=== PATIENT | female | born 1965 | race African-American/Black ===

== ENCOUNTER 2017-09-30 09:23 | Emergency (ER) | payer BC ==
[2017-09-30 09:58] LABS: Urine Blood NEGATIVE (NEG); Urine Glucose NEGATIVE (NEG); Urine Protein NEGATIVE (NEG); Urine pH 6.5 (5.0-7.0)
[2017-09-30 11:31] LABS: Absolute Lymphocytes (CBC) 2.4 K/uL (0.7-4.9); Absolute Monocytes 0.4 K/uL (0.1-1.3); Absolute Neutrophil 3.8 K/uL (1.8-8.0); Basophils % 0.6 % (0-1.3); Eosinophils % 5.9 % (0-4.4); Hematocrit 39.5 % (36.0-45.0); Lymphocytes % 33.9 % (15.3-44.8); MCH 23.9 pg (27.0-35.0); MCV 74.9 fL (80-100); MPV 7.8 fL (7.6-11.3); Monocytes % 5.9 % (3.3-12.3); RBC Red Blood Cell Count 5.27 M/uL (3.86-4.86)
--- NOTE | 2017-09-30 11:31 | RAD REPORT ---
EXAM DESCRIPTION: CT - Stone Protocol - 09/30/2017 11:16 am CLINICAL HISTORY: Left lower quadrant pain radiating to the back, partial hysterectomy COMPARISON: None. TECHNIQUE: Axial 5 mm thick images were obtained without oral or IV contrast. The [id number] span s the entirety of the system including uppermost abdomen and lung bases. All CT scans are performed using dose optimization technique as appropriate and may include automated exposure control or mA/KV adjustment according to patient size. FINDINGS: No hydronephrosis is present and no obstructing ureteral calculi. There is a 6 mm nonobstr ucting calyx calcification lower pole of the left kidney. No suspicious renal masses. Isodense masses and pyelonephritis are not excluded on a stone protocol CT scan. Partially filled urinary bladder sh ows no calculus, wall thickening mass. Clinical history is partial hysterectomy. There is no uterus identifiable. In the central pelvis ther e is a 13 x 6 centimeter homogeneous thin-walled fluid attenuation mass. No wall thickening, fat, nehal cification or other associated finding. Both the right and left ovary abut the lateral margins of the cystic mass. The ovaries are otherwise unremarkable. Liver and spleen show no suspicious findings. No acute gallbladder finding. Gallstones can be occult. No biliary tree dilatation. No adrenal abnormality. Along the superior margin of the pancreatic body extending porch the gastrohepatic ligament there is a 2.4 centimeter rounded soft tissue mass. This is isodense to the pancreatic parenchyma. No adjacent mass, stranding or lymph node. No gastric wall thickening or gastric mass. Small bowel is unremarkable. No appendicitis findings. Th ere is contrast or appendicolith present. No active process seen. A few diverticula are scattered in the colon. No hernia, omental thickening or bulky lymphadenopathy. No free air, free fluid or inflammatory stran ding. No significant bony abnormality. IMPRESSION: No hydronephrosis, obstructing calculus or acute finding. A 6 mm calcification is pre sent lower pole calyx on the left. Isodense masses and pyelonephritis are not excluded. The patient has a 2.4 centimeter mass that abuts or extends from the body of the pancreas towards the gastrohepatic ligament. This could be a pancreatic origin mass or an abnormal gastrohepatic ligament lymph node. A follow-up contrast CT or contrast MR study could be performed for further characteriza tion. A primary pancreatic malignant process cannot be excluded. A 13 x 6 centimeter homogeneous fluid attenuation mass is present in the pelvis over the dome of the urinary bladder. In a post hysterectomy patient this is possibly a chronic postoperative seroma. Ovar ies abut this mass and therefore cystadenoma would be a possibility. No prior imaging is available at this facility. If the patient has prior abdominal/pelvic imaging, th ose studies could be reviewed to determine if the above findings are new, progressive or chronic.
[2017-09-30 11:37] LABS: Potassium 4.7 mEq/L (3.6-5.0)
[2017-09-30 11:38] LABS: Glomerular Filtration Rate > 60 mL/min (>60)
[2017-09-30 11:38] LABS: Urine Bacteria 20-50 /HPF (<20); Urine RBC <5 /HPF (NONE SEEN)
[2017-09-30 11:39] LABS: Urine Culture Reflex Order REFLEXED
[2017-09-30 11:43] LABS: Albumin 4.4 g/dL (3.2-5.5); Bilirubin Direct 0.1 mg/dL (0-0.2); Bilirubin Total 0.6 mg/dL (0.3-1.2); Protein, Total 8.8 g/dL (6.0-8.3)
--- NOTE | 2017-09-30 13:03 | ER ---
Nurse's Notes [facility] Name: Kennedi Markham Age: 51 yrs Sex: Female : 1965 Arrival Date: 09/30/2017 Time: 09:24 Bed 19 Private MD: Diagnosis: Other intra-abdominal and pelvic swelling, mass and lump;Lower abdominal pain, unspecified Presentation: 09/30 09:35 Presenting complaint: Patient states: sharp, intermittent LLQ pain that radiates toward ss back that began last night. Denies urinary s/s, N/V/V. Transition of care: patient was not received from another setting of care. Onset of symptoms was September 29, 2017. Care prior to arrival: None. 09:35 Method Of Arrival: Ambulatory ss 09:35 Acuity: HERVE 3 ss Historical: - Allergies: 09:37 No Known Allergies; ss - Home Meds: 09:37 "pain relievers and muscle relaxers for my shoulder" [Active]; ss - PMHx: 09:37 Anxiety; ss - PSHx: 09:37 Partial hysterectomy; ss - Immunization history:: Adult Immunizations up to date. - Social history:: Smoking status: Patient/guardian denies using tobacco. Screenin:02 Abuse screen: Denies threats or abuse. Denies injuries from another. Nutritional ph screening: No deficits noted. Tuberculosis screening: No symptoms or risk factors identified. Fall Risk None identified. Assessment: 10:15 General: Appears in no apparent distress. uncomfortable, well groomed, Behavior is ph calm, cooperative, appropriate for age, Denies fever, feeling ill. Pain: Complains of pain in left lower quadrant Pain radiates to left low back. Neuro: Level of Consciousness is awake, alert, obeys commands, Oriented to person, place, time, situation. Cardiovascular: Capillary refill < 3 seconds in bilateral fingers Patient's skin is warm and dry. Respiratory: Airway is patent Respiratory effort is even, unlabored, Respiratory pattern is regular, symmetrical. GI: Bowel sounds present X 4 quads. Abd is soft and non tender Reports lower abdominal pain, nausea, Patient currently denies diarrhea, vomiting. : Reports urinary frequency. Derm: Skin is intact, is healthy with good turgor, Skin is pink, warm \\T\\ dry. Musculoskeletal: Circulation, motion, and sensation intact. Range of motion: intact in all extremities. 11:30 Reassessment: Patient appears in no apparent distress at this time. Patient and/or ph family updated on plan of care and expected duration. Pain level reassessed. Patient is alert, oriented x 3, equal unlabored respirations, skin warm/dry/pink. PT resting quietly, awaiting lab and CT results results. Vital Signs: 09:37 BP 124 / 91; Pulse 105; Resp 14; Temp 97.5(TE); Pulse Ox 98% on R/A; Weight 117.93 kg; ss Height 5 ft. 5 in. (165.10 cm); Pain 9/10; 12:02 BP 132 / 89; Pulse 98; Resp 18; Pulse Ox 99% on R/A; ph 09:37 Body Mass Index 43.27 (117.93 kg, 165.10 cm) ED Course: 09:24 Patient arrived in ED. as 09:36 Triage completed. ss 09:37 Arm band placed on right wrist. ss 10:01 Ria Jacobs RN is Primary Nurse. ph 10:05 Donovan Santiago PA is PHCP. cp 10:05 David Cortés MD is Attending Physician. cp 11:10 Inserted saline lock: 22 gauge in right antecubital area, using aseptic technique. rb1 Blood collected. 11:16 CT Stone Protocol In Process Unspecified. EDMS 12:02 Patient has correct armband on for positive identification. Placed in gown. Bed in low ph position. Call light in reach. Side rails up X 1. Pulse ox on. NIBP on. Warm blanket given. 13:02 Roberto Carlos Maier MD is Referral Physician. cp Administered Medications: No medications were administered Outcome: 13:03 Discharge ordered by . cp 13:32 Patient left the ED. ph Signatures: Dispatcher [employer] EDMS Bernice Jiménez Shelby, RN RN Ria Jacobs RN RN ph Donovan Santiago PA PA cp Yuly Cleaning RN RN rb1
--- NOTE | 2017-09-30 13:04 | EDPHYS ---
Physician Documentation [facility] Name: Kennedi Markham Age: 51 yrs Sex: Female : 1965 Arrival Date: 09/30/2017 Time: 09:24 Bed 19 Private MD: ED Physician David Cortés HPI: 09/30 10:45 This 51 yrs old Black Female presents to ER via Ambulatory with complaints of Abdominal cp Pain, Back Pain. 10:45 The patient presents with abdominal pain in the left lower quadrant. cp 10:45 Onset: The symptoms/episode began/occurred last night. The symptoms radiate to left cp back. 10:45 Associated signs and symptoms: Pertinent negatives: blood in stools, chest pain, cp constipation, diarrhea, dysuria, fever, hematuria, vomiting. The symptoms are described as waxing/waning. Modifying factors: the symptoms are aggravated by pressure. Severity of pain: in the emergency department the pain is unchanged despite home interventions. Historical: - Allergies: 09:37 No Known Allergies; ss - Home Meds: 09:37 "pain relievers and muscle relaxers for my shoulder" [Active]; ss - PMHx: 09:37 Anxiety; ss - PSHx: 09:37 Partial hysterectomy; ss - Immunization history:: Adult Immunizations up to date. - Social history:: Smoking status: Patient/guardian denies using tobacco. ROS: 10:55 Constitutional: Negative for body aches, chills, fever, poor PO intake, weight loss. cp 10:55 Eyes: Negative for injury, pain, redness, and discharge. cp 10:55 ENT: Negative for drainage from ear(s), ear pain, sore throat, difficulty swallowing, cp difficulty handling secretions. 10:55 Cardiovascular: Negative for chest pain, edema, palpitations. cp 10:55 Respiratory: Negative for cough, shortness of breath, wheezing. 10:55 Abdomen/GI: Positive for abdominal pain, nausea, Negative for vomiting, diarrhea, constipation, anorexia, black/tarry stool, rectal bleeding. 10:55 : Negative for urinary symptoms, vaginal bleeding, vaginal discharge. 10:55 Skin: Negative for cellulitis, rash. 10:55 All other systems are negative. Exam: 11:05 Constitutional: The patient appears in no acute distress, alert, awake, non-toxic, well cp developed, well nourished. 11:05 Head/Face: Normocephalic, atraumatic. cp 11:05 Eyes: Periorbital structures: appear normal, Conjunctiva: normal, no exudate, no injection, Sclera: no appreciated abnormality, Lids and lashes: appear normal, bilaterally. 11:05 ENT: External ear(s): are unremarkable, Nose: is normal, Mouth: Lips: moist, Oral mucosa: pink and intact, moist, Posterior pharynx: is normal, airway is patent, no erythema, no exudate. 11:05 Neck: ROM/movement: is normal, is supple, without pain, no range of motions limitations, no meningismus, no nuchal rigidity. 11:05 Chest/axilla: Inspection: normal, Palpation: is normal, no crepitus, no tenderness. 11:05 Cardiovascular: Rate: tachycardic, Rhythm: regular, Edema: is not appreciated, JVD: is not appreciated. 11:05 Respiratory: the patient does not display signs of respiratory distress, Respirations: normal, no use of accessory muscles, no retractions, no splinting, no tachypnea, labored breathing, is not present, Breath sounds: are clear throughout, no decreased breath sounds, no stridor, no wheezing. 11:05 Abdomen/GI: Inspection: obese Bowel sounds: active, all quadrants, Palpation: soft, in all quadrants, moderate abdominal tenderness, in the left upper quadrant and left lower quadrant, rebound tenderness, is not appreciated, voluntary guarding, is not appreciated, involuntary guarding, is not appreciated. 11:05 Back: CVA tenderness, is absent. 11:05 Skin: cellulitis, is not appreciated, no rash present. 11:05 Neuro: Orientation: to person, place \\T\\ time. Mentation: is normal, Cerebellar function: cp is grossly normal, Motor: moves all fours, strength is normal, Sensation: no obvious gross deficits. Vital Signs: 09:37 BP 124 / 91; Pulse 105; Resp 14; Temp 97.5(TE); Pulse Ox 98% on R/A; Weight 117.93 kg; ss Height 5 ft. 5 in. (165.10 cm); Pain 9/10; 12:02 BP 132 / 89; Pulse 98; Resp 18; Pulse Ox 99% on R/A; ph 09:37 Body Mass Index 43.27 (117.93 kg, 165.10 cm) ss MDM: 10:06 Patient medically screened. cp 11:00 Differential diagnosis: appendicitis, diverticulitis, gastritis, Peritonitis, cp Pyelonephritis, Ureterolithiasis, urinary tract infection. 13:00 Data reviewed: vital signs, nurses notes, lab test result(s), radiologic studies, CT cp scan. 13:00 Counseling: I had a detailed discussion with the patient and/or guardian regarding: the cp historical points, exam findings, and any diagnostic results supporting the discharge/admit diagnosis, lab results, radiology results, the need for outpatient follow up, a general surgeon, to return to the emergency department if symptoms worsen or persist or if there are any questions or concerns that arise at home. 13:00 Special discussion: Based on the patient's Hx, exam, and Dx evaluation, there is no cp indication for emergent surgery or inpatient Tx. It is understood by the patient/guardian that if the Sx's persist or worsen they need to return immediately for re-evaluation. 09/30 09:54 Order name: Urine Dipstick--Ancillary (enter results); Complete Time: 10:29 bd 09/30 09:54 Order name: Urine --Ancillary (enter results); Complete Time: 10:29 bd 09/30 10:43 Order name: Amylase, Serum; Complete Time: 12:06 cp 09/30 10:43 Order name: Basic Metabolic Panel; Complete Time: 12:06 cp 09/30 12:06 Interpretation: Normal except: CRE 1.01; GFR 71. cp 09/30 10:43 Order name: CBC with Diff; Complete Time: 11:35 cp 09/30 11:35 Interpretation: Normal except: RBC 5.27; MCV 74.9; MCH 23.9; MCHC 31.9; PLT 461; RDW cp 16.1; EOSINOPHIL % 5.9. 09/30 10:43 Order name: Creatinine for Radiology; Complete Time: 12:06 cp 09/30 10:43 Order name: Hepatic Function; Complete Time: 12:06 cp 09/30 12:07 Interpretation: Normal except: TP 8.8; GLOB 4.4; A/G 1.0. cp 09/30 10:43 Order name: Lipase; Complete Time: 12:06 cp 09/30 10:43 Order name: Urine Microscopic Only; Complete Time: 12:06 cp 09/30 12:06 Interpretation: Normal except: UWBC 5-10; UBACT 20-50; SQEPI 10-20. cp 09/30 10:43 Order name: IV Saline Lock; Complete Time: 11:16 cp 09/30 10:43 Order name: Labs collected and sent; Complete Time: 11:16 cp 09/30 10:43 Order name: CT Stone Protocol; Complete Time: 11:32 cp 09/30 11:40 Order name: Urine Culture EDMI 09/30 12:08 Order name: PO challenge; Complete Time: 12:38 cp Administered Medications: No medications were administered Disposition: 09/30/17 13:03 Discharged to Home. Impression: Other intra-abdominal and pelvic swelling, mass and lump, Lower abdominal pain, unspecified. - Condition is Stable. - Discharge Instructions: Abdominal Pain, Women. - Prescriptions for Ultracet 37.5- 325 mg Oral Tablet - take 1 tablet by ORAL route every 6 hours - for up to 5 days; do not exceed 8 tablets per day.; 20 tablet. Naprosyn 500 mg Oral Tablet - take 1 tablet by ORAL route 2 times per day take with food; 20 tablet. - Work release form, Medication Reconciliation Form, Thank You Letter, Antibiotic Education, Prescription Opioid Use form. - Follow up: Roberto Carlos Maier MD; When: 1 - 2 days; Reason: abdominal fluid filled mass. - Problem is new. - Symptoms are unchanged. Signatures: Dispatcher [employer] [facility] Kelly Lugo RN RN ss Hall, Patricia, RN RN ph Donovan Santiago, CARLOS A STRAUSS cp
== END 2017-09-30 13:32 | disposition home or self-care (01) ==
LOC: ER 09:23
DX: R19.00 Intra-abdominal and pelvic swelling, mass and lump, unspecified site (principal); F41.9 Anxiety disorder, unspecified
CPT/HCPCS: 36415; 74176; 76377; 80048; 80076; 81003; 81015; 81025; 82150; 83690; 85025; 87086; 87088; 99284

== ENCOUNTER 2018-02-08 19:19 | Observation (INO) | payer BC ==
--- OUTSIDE RECORDS SUMMARY | 2018-02-08 19:21 | XMS REPORT | Clinical Summary ---
:1965 Author Organization [facility] Address [address] [place] [address] Care Team Providers Name Role Phone Katharina Unger MD Primary Care Provider Allergies No Known Allergies Current Medications Prescription Sig. Disp. Refills Start Date End Date Status naproxen (NAPROSYN) 500 mg as 0 09/30/2017 Active 500 MG tablet needed. acetaminophen Tylenol Active (TYLENOL ARTHRITIS Arthritis Pain PAIN) 650 MG 8 hr PRN tablet traMADol-acetaminop Take 1 tablet 0 09/30/2017 Discontinued hen (ULTRACET) by mouth as 8 37.5-325 mg per needed. tablet traMADol (ULTRAM) Take 1 tablet 40 tablet 0 12/29/2017 50 mg tablet (50 mg total) 8 by mouth every 6 (six) hours for 15 days. acetaminophen-codei Take 1-2 40 tablet 0 12/29/2017 ne (TYLENOL WITH tablets by 8 CODEINE #3) 300-30 mouth every 6 mg per tablet (six) hours as needed for moderate pain for up to 15 days. polyethylene glycol Take 17 g by 30 packet 0 12/29/2017 (MIRALAX) 17 gram mouth daily for 8 packet 30 days. Active Problems Problem Noted Date Pancreatitis 12/24/2017 Encounters Date Type Specialty Care Team Description 01/23/2018 Office Visit Gynecologic Amor Mayers MD Ovarian mass, right Oncology 01/05/2018 Office Visit General Surgery Min Bennett Postop judah Kirk MD (Primary Dx) 12/24/2017 - Hospital Encounter General Surgery Min Bennett Pancreatic mass 12/29/2017 MD Reagan 12/24/2017 Anesthesia Event General Surgery Romeo Salgado MD 12/24/2017 Procedure Pass General Surgery 12/24/2017 Surgery General Surgery Min Bennett ENUCLEATION MD Reagan PANCREATIC MASS 12/17/2017 Office Visit Gynecologic Amor Mayers MD Ovarian mass Oncology 12/10/2017 Telephone Gynecologic Amor Mayers MD Oncology 12/04/2017 Office Visit General Surgery Min Bennett Pancreatic neoplasm MD Reagan (Primary Dx) 12/03/2017 Lab Lab Gladis Rosales MD 11/12/2017 Telephone General Surgery Christel Segovia MA 11/11/2017 Hospital Encounter Radiology Amor Mayers MD Pancreatic mass 11/11/2017 Telephone Gynecologic Amor Mayers MD Oncology 11/06/2017 Office Visit General Surgery Molina Mendoza Pancreatic mass MD Shannon (Primary Dx) 11/04/2017 Office Visit Gynecologic Amor Mayers MD Pancreatic mass Oncology (Primary Dx) after 02/07/2017 Family History Medical History Relation Name Comments Lung cancer Father Diabetes Mother Hypertension Mother Pancreatic cancer Sister Relation Name Status Comments Father Mother Alive Sister Social History Tobacco Use Types Packs/Day Years Used Date Never Smoker Smokeless Tobacco: Never Used Alcohol Use Drinks/Week oz/Week Comments No Sex Assigned at Date Recorded Not on file Last Filed Vital Signs Vital Sign Reading Time Taken Blood Pressure 120/82 01/23/2018 8:57 AM CDT Pulse 80 01/23/2018 8:57 AM CDT Temperature 36.3 C (97.4 F) 12/29/2017 12:57 PM CDT Respiratory Rate 18 12/29/2017 12:57 PM CDT Oxygen Saturation 98% 12/29/2017 12:57 PM CDT Inhaled Oxygen Concentration - - Weight 122 kg (269 lb 11.2 oz) 12/24/2017 7:42 AM CDT Height 165.1 cm (5' 5") 12/24/2017 7:42 AM CDT Body Mass Index 44.88 12/24/2017 7:42 AM CDT Plan of Treatment Date Type Specialty Care Team Description 02/25/2018 Office Visit Gynecologic Oncology Amor Mayers MD [address] [address] Health Maintenance Due Date Last Done Comments CERVICAL CANCER SCREENING 11/25/1988 BREAST CANCER SCREENING 11/25/2017 COLON CANCER SCREENING 11/25/2017 SHINGRIX VACCINE (#1) 11/25/2017 INFLUENZA VACCINE 01/28/2018 08/10/2013, 08/10/2010 Implants Implanted Type Area Culinary Instructor Device Expiration Model / Identifier Date Serial / Lot [employer] 5x5cm 1.65mm Ptfe - [id number] Surgical N/A: N/A BARD PERIPHERAL 03/27/2022 [id number] / Implanted: 12/24/2017 (Quantity not on file) Implants; VASCULAR / Expanders; [id number] Extenders; Surgical Wires Procedures Procedure Name Priority Date/Time Associated Comments Diagnosis AMYLASE LEVEL, MISC Routine 12/29/2017 10:00 AM Results for this FLUID CDT procedure are in the results section. ESTIMATED GFR Routine 12/29/2017 4:00 AM Results for this CDT procedure are in the results section. PHOSPHORUS LEVEL Routine 12/29/2017 4:00 AM Results for this CDT procedure are in the results section. MAGNESIUM LEVEL Routine 12/29/2017 4:00 AM Results for this CDT procedure are in the results section. BASIC METABOLIC Routine 12/29/2017 4:00 AM Results for this PANEL CDT procedure are in the results section. CBC HEMOGRAM Routine 12/29/2017 3:41 AM Results for this CDT procedure are in the results section. AMYLASE LEVEL, MISC Routine 12/28/2017 1:20 PM Results for this FLUID CDT procedure are in the results section. HC COMPLETE BLD STAT 12/28/2017 8:14 AM Results for this COUNT W/AUTO DIFF CDT procedure are in the results section. AMYLASE LEVEL STAT 12/28/2017 7:00 AM Results for this CDT procedure are in the results section. ESTIMATED GFR STAT 12/28/2017 7:00 AM Results for this CDT procedure are in the results section. PHOSPHORUS LEVEL STAT 12/28/2017 7:00 AM Results for this CDT procedure are in the results section. MAGNESIUM LEVEL STAT 12/28/2017 7:00 AM Results for this CDT procedure are in the results section. BASIC METABOLIC STAT 12/28/2017 7:00 AM Results for this PANEL CDT procedure are in the results section. HC COMPLETE BLD STAT 12/27/2017 8:09 AM Results for this COUNT W/AUTO DIFF CDT procedure are in the results section. ESTIMATED GFR STAT 12/27/2017 6:40 AM Results for this CDT procedure are in the results section. PHOSPHORUS LEVEL STAT 12/27/2017 6:40 AM Results for this CDT procedure are in the results section. MAGNESIUM LEVEL STAT 12/27/2017 6:40 AM Results for this CDT procedure are in the results section. BASIC METABOLIC STAT 12/27/2017 6:40 AM Results for this PANEL CDT procedure are in the results section. CT ABDOMEN PELVIS W STAT 12/26/2017 5:30 PM Results for this CONTRAST CDT procedure are in the results section. CT ANGIOGRAM PE STAT 12/26/2017 5:30 PM Results for this CHEST CDT procedure are in the results section. XR CHEST 2 VW STAT 12/26/2017 2:26 PM Results for this CDT procedure are in the results section. ARTERIAL BLOOD GAS STAT 12/26/2017 1:24 PM Results for this CDT procedure are in the results section. HC COMPLETE BLD STAT 12/26/2017 6:54 AM Results for this COUNT W/AUTO DIFF CDT procedure are in the results section. ESTIMATED GFR STAT 12/26/2017 5:52 AM Results for this CDT procedure are in the results section. PHOSPHORUS LEVEL STAT 12/26/2017 5:52 AM Results for this CDT procedure are in the results section. MAGNESIUM LEVEL STAT 12/26/2017 5:52 AM Results for this CDT procedure are in the results section. BASIC METABOLIC STAT 12/26/2017 5:52 AM Results for this PANEL CDT procedure are in the results section. HC COMPLETE BLD Routine 12/25/2017 8:00 AM Results for this COUNT W/AUTO DIFF CDT procedure are in the results section. ESTIMATED GFR Routine 12/25/2017 12:00 AM Results for this CDT procedure are in the results section. MAGNESIUM LEVEL Routine 12/25/2017 12:00 AM Results for this CDT procedure are in the results section. PHOSPHORUS LEVEL Routine 12/25/2017 12:00 AM Results for this CDT procedure are in the results section. BASIC METABOLIC Routine 12/25/2017 12:00 AM Results for this PANEL CDT procedure are in the results section. XR CHEST 1 VW Routine 12/24/2017 12:20 PM Results for this PORTABLE CDT procedure are in the results section. SURGICAL PATHOLOGY Routine 12/24/2017 10:19 AM Results for this REQUEST CDT procedure are in the results section. SURGICAL PATHOLOGY Routine 12/24/2017 10:19 AM Results for this REQUEST CDT procedure are in the results section. CENTRAL LINE Routine 12/24/2017 10:07 AM CDT Procedure Note - Romeo Salgado MD - 12/24/2017 10:07 AM CDT Central line Performed by: ROMEO SALGADO Authorized by: ROMEO SALGADO Start Time: 12/24/2017 9:28 AM End Time: 12/24/2017 9:37 AM Staff: Performed by: Anesthesiologist Preprocedure:patient identified, IV checked, site and side verified, risks and benefits discussed, procedure verified, surgical consent complete, patient position confirmed, monitors and equipment checked and pre-op evaluation complete MSBT: antiseptic used during central venous catheter insertion, all elements of maximal sterile barrier technique followed, hand hygiene performed prior to central venous catheter insertion, cap/gown used by other personnel during central venous catheter insertion, solutions labeled and all ports not used during insertion clamped TIme Out Performed: 12/24/2017 9:28 AM Indications: Indications: Vascular access Anesthesia: Anesthesia: General Procedure details: Patient position: Supine Catheter Type: Double lumen Catheter Size: 8.5 Fr Catheter Site: internal jugular vein Catheter site laterality: Right Ultrasound guidance used: No Ultrasound image saved: No Number of attempts: 1 Successful placement: Yes Guidewire removal: Guidewire removal is confirmed Guidewire removal witnessed by: Irineo ANGELO Post-procedure: Post-procedure: line sutured and sterile dressing applied per protocol Post-procedure: Blood cleaned with CHG and sterile caps on all hubs Assessment: Blood return through all ports Patient tolerance: Patient tolerated the procedure well with no immediate complications ARTERIAL LINE Routine 12/24/2017 10:06 AM CDT Procedure Note - Romeo Salgado MD - 12/24/2017 10:06 AM CDT Arterial line Performed by: ROMEO SALGADO Authorized by: ROMEO SALGADO Patient Location: OR Start Time: 12/24/2017 9:23 AM End Time: 12/24/2017 9:27 AM Staff: Performed by: Anesthesiologist Pre-procedure: patient identified, IV checked, site and side verified, risks and benefits discussed, procedure verified, surgical consent complete, patient position confirmed, monitors and equipment checked and pre-op evaluation complete MSBT: antiseptic used, all elements of maximal sterile barrier technique followed, hand hygiene performed, cap/gown used by other personnel and solutions labeled TIme Out Performed: 12/24/2017 9:23 AM Indications: Indications: multiple ABGs and hemodynamic monitoring Anesthesia: Anesthesia: General Procedure Details: Arterial Line placement: Placed post induction Line placement site: Radial Line placement side: Left Arterial line gauge: 20 G Number of attempts: 2 Ultrasound guidance used: No Post-procedure: Post-procedure: Sterile dressing applied Post procedure circulation, sensation, movement: Normal and unchanged Patient tolerance: Patient tolerated the procedure well with no immediate complications [place] AN ELECTIVE ENDOTRACHEAL AIRWAY Routine 12/24/2017 10:02 AM CDT Procedure Note - Romeo Salgado, - 12/24/2017 10:02 AM CDT Airway Performed by: ROMEO SALGADO Authorized by: ROMEO SALGADO Location: OR Urgency: Elective Difficult Airway: No Preoxygenated with 100% O2: Yes C-spine Precautions Maintained Throughout: Yes Mask Ventilation: Easy mask Final Airway Type: Endotracheal airway Final Endotracheal Airway: ETT Technique Used: Direct laryngoscopy Blade Type: Bower Laryngoscope Blade/Videolaryngoscope Blade Size: 2 ETT Size (mm): 7.0 Measured from: Lips ETT to Lips (cm): 21 Placement Verified by: CO2 detection, direct visualization and equal breath sounds Laryngoscopic view: Grade I - full view of glottis Rapid Sequence Induction (RSI): No Modified RSI: No Number of Attempts at Approach: 1 SALPINGO-OOPHORECTOMY 12/24/2017 8:00 AM CDT Pancreatic mass Case Notes CRISTINA AWARE NO DN6 STAFF AVAILABLE SHE IS OK W/ IT 12/19, CRISTINA AWARE NO DN6 STAFF AVAILABLE SHE IS OK W/ IT 12/[address] BENNETT WORKING 1ST EST 2 HRS, DR MENDZOA TO ASSIST, ISSA WORKING 2ND EST 2 HOURS, NO MCCABE 6 STAFF AVAILABLE PANCREATECTOMY, SUBTOTAL, DISTAL 12/24/2017 8:00 AM CDT Pancreatic mass Case Notes CRISTINA AWARE NO DN6 STAFF AVAILABLE SHE IS OK W/ IT 12/19, CRISTINA AWARE NO DN6 STAFF AVAILABLE SHE IS OK W/ IT 12/[address] BENNETT WORKING 1ST EST 2 HRS, DR MENDOZA TO ASSIST, ISSA WORKING 2ND EST 2 HOURS, NO MCCABE 6 STAFF AVAILABLE ECG 12-LEAD STAT 12/24/2017 7:51 AM Results for this CDT procedure are in the results section. PREPARE RBC Timed 12/24/2017 7:49 AM Results for this CDT procedure are in the results section. PARTIAL THROMBOPLASTIN STAT 12/24/2017 7:49 AM Results for this TIME (PTT) CDT procedure are in the results section. PROTHROMBIN TIME WITH INR STAT 12/24/2017 7:49 AM Results for this CDT procedure are in the results section. ESTIMATED GFR STAT 12/24/2017 7:49 AM Results for this CDT procedure are in the results section. TYPE AND SCREEN Timed 12/24/2017 7:49 AM Results for this CDT procedure are in the results section. BASIC METABOLIC PANEL STAT 12/24/2017 7:49 AM Results for this CDT procedure are in the results section. HC COMPLETE BLD COUNT STAT 12/24/2017 7:49 AM Results for this W/AUTO DIFF CDT procedure are in the results section. SURGICAL PATHOLOGY Routine 12/03/2017 9:38 AM Results for this REQUEST CDT procedure are in the results section. CT ABDOMEN W WO CONTRAST Routine 11/11/2017 6:15 PM Pancreatic mass Results for this CDT procedure are in the results section. CANCER ANTIGEN 19-9 Routine 11/04/2017 3:24 PM Pancreatic mass Results for this CDT procedure are in the results section. ALPHA FETOPROTEIN Routine 11/04/2017 3:24 PM Pancreatic mass Results for this CDT procedure are in the results section. CARCINOEMBRYONIC ANTIGEN Routine 11/04/2017 3:24 PM Pancreatic mass Results for this (CEA) CDT procedure are in the results section. CANCER ANTIGEN 125 Routine 11/04/2017 3:24 PM Pancreatic mass Results for this CDT procedure are in the results section. after 02/07/2017 Results Amylase level, misc fluid (12/29/2017 10:00 AM)Only the most recent of2 resultswithin the time period is included. Fluid type FootnoteComment: dwaine drain [facility] DEPARTMENT OF PATHOLOGY AND GENOMIC MEDICINE Amylase, fluid 154 U/L [facility] DEPARTMENT OF PATHOLOGY Comment: AND GENOMIC MEDICINE Analysis performed on Arcelia 8000 analyzer. This is not an approved methodology for this specimen type;accuracy and clinical significance uncertain. Specimen Fluid Performing Organization Address [facility] Cent[facility]ode Phone Number [facility] DEPARTMENT OF PATHOLOGY AND [address] [place] [address] GENOMIC MEDICINE Estimated GFR (12/29/2017 4:00 AM)Only the most recent of6 resultswithin the time period is included. GFR Non Af Amer 89 mL/min/1.73 m2 [facility] DEPARTMENT OF PATHOLOGY AND GENOMIC MEDICINE GFR Af Amer >90 mL/min/1.73 m2 [facility] DEPARTMENT OF Comment: PATHOLOGY AND GENOMIC Chronic kidney disease: <60 mL/min/1.73m2 MEDICINE Kidney failure: <15 mL/min/1.73m2 The estimated GFR is calculated from the IDMS-traceable Modification of Diet in Renal Disease Equation. The accuracy of the calculation is poor when the creatinine is normal. Calculated values >90 mL/min/1.73m2 are not reported. This equation has not been validated in children (<18 years), women, the elderly (>70 years), or ethnic groups other than Caucasians and Americans. Specimen Plasma specimen Performing Organization Address [facility] Phone Number [facility] DEPARTMENT OF PATHOLOGY AND [address] [place] [address] GENOMIC MEDICINE Phosphorus level (12/29/2017 4:00 AM)Only the most recent of5 resultswithin the time period is included. Phosphorus 3.1 2.4 - 4.5 mg/dL [facility] DEPARTMENT OF PATHOLOGY AND GENOMIC MEDICINE Specimen Plasma specimen Performing Organization Address [facility]conm Phone Number [facility] DEPARTMENT OF PATHOLOGY AND [address] [place] [address] GENOMIC MEDICINE Magnesium level (12/29/2017 4:00 AM)Only the most recent of5 resultswithin the time period is included. Magnesium 1.9 1.6 - 2.6 mg/dL [facility] DEPARTMENT OF PATHOLOGY AND GENOMIC MEDICINE Specimen Plasma specimen Performing Organization Address [facility] Centercode Phone Number [facility] DEPARTMENT OF PATHOLOGY AND [address] [place] [address] GENOMIC MEDICINE Basic metabolic panel (12/29/2017 4:00 AM)Only the most recent of6 resultswithin the time period is included. Sodium 140 135 - 148 mEq/L [facility] DEPARTMENT OF PATHOLOGY AND GENOMIC MEDICINE Potassium 3.6 3.5 - 5.0 mEq/L [facility] DEPARTMENT OF PATHOLOGY AND GENOMIC MEDICINE Chloride 103 98 - 112 mEq/L [facility] DEPARTMENT OF PATHOLOGY AND GENOMIC MEDICINE CO2 27 24 - 31 mEq/L [facility] DEPARTMENT OF PATHOLOGY AND GENOMIC MEDICINE Anion gap 10@ANIO 7 - 15 mEq/L [facility] DEPARTMENT OF PATHOLOGY AND GENOMIC MEDICINE BUN 2 (L) 6 - 20 mg/dL [facility] DEPARTMENT OF PATHOLOGY AND GENOMIC MEDICINE Creatinine 0.7 0.5 - 0.9 mg/dL [facility] DEPARTMENT OF PATHOLOGY AND GENOMIC MEDICINE Glucose 113 (H) 65 - 99 mg/dL [facility] DEPARTMENT OF PATHOLOGY AND GENOMIC MEDICINE Calcium 8.5 8.3 - 10.2 mg/dL [facility] DEPARTMENT OF PATHOLOGY AND GENOMIC MEDICINE Specimen Plasma specimen Performing Organization Address City/[facility]conm Phone Number [facility] DEPARTMENT OF PATHOLOGY AND [address] [place] [phone] [facility] CBC hemogram (12/29/2017 3:41 AM) WBC 7.16 4.50 - 11.00 k/uL [facility] DEPARTMENT OF PATHOLOGY AND GENOMIC MEDICINE RBC 3.28 (L) 4.20 - 5.50 m/uL [facility] DEPARTMENT OF PATHOLOGY AND GENOMIC MEDICINE HGB 7.9 (L) 12.0 - 16.0 g/dL [facility] DEPARTMENT OF PATHOLOGY AND GENOMIC MEDICINE HCT 26.9 (L) 37.0 - 47.0 % [facility] DEPARTMENT OF PATHOLOGY AND GENOMIC MEDICINE MCV 82.0 82.0 - 100.0 fL [facility] DEPARTMENT OF PATHOLOGY AND GENOMIC MEDICINE MCH 24.1 (L) 27.0 - 34.0 pg [facility] DEPARTMENT OF PATHOLOGY AND GENOMIC MEDICINE MCHC 29.4 (L) 31.0 - 37.0 g/dL [facility] DEPARTMENT OF PATHOLOGY AND GENOMIC MEDICINE RDW - SD 44.3 37.0 - 55.0 fL [facility] DEPARTMENT OF PATHOLOGY AND GENOMIC MEDICINE MPV 9.7 8.8 - 13.2 fL [facility] DEPARTMENT OF PATHOLOGY AND GENOMIC MEDICINE Platelet count 356 150 - 400 k/uL [facility] DEPARTMENT OF PATHOLOGY AND GENOMIC MEDICINE Nucleated RBC 0.40 /100 WBC [facility] DEPARTMENT OF PATHOLOGY AND GENOMIC MEDICINE Specimen Blood Performing Organization Address City/[facility] Centercode Phone Number [facility] DEPARTMENT OF PATHOLOGY AND [address] [place] [phone] GENOMIC MEDICINE CBC with platelet and differential (12/28/2017 8:14 AM)Only the most recent of5 resultswithin the time period is included. WBC 8.13 4.50 - 11.00 k/uL [facility] DEPARTMENT OF PATHOLOGY AND GENOMIC MEDICINE RBC 3.46 (L) 4.20 - 5.50 m/uL [facility] DEPARTMENT OF PATHOLOGY AND GENOMIC MEDICINE HGB 8.4 (L) 12.0 - 16.0 g/dL [facility] DEPARTMENT OF PATHOLOGY AND GENOMIC MEDICINE HCT 28.0 (L) 37.0 - 47.0 % [facility] DEPARTMENT OF PATHOLOGY AND GENOMIC MEDICINE MCV 80.9 (L) 82.0 - 100.0 fL [facility] DEPARTMENT OF PATHOLOGY AND GENOMIC MEDICINE MCH 24.3 (L) 27.0 - 34.0 pg [facility] DEPARTMENT OF PATHOLOGY AND GENOMIC MEDICINE MCHC 30.0 (L) 31.0 - 37.0 g/dL [facility] DEPARTMENT OF PATHOLOGY AND GENOMIC MEDICINE RDW - SD 42.7 37.0 - 55.0 fL [facility] DEPARTMENT OF PATHOLOGY AND GENOMIC MEDICINE MPV 9.4 8.8 - 13.2 fL [facility] DEPARTMENT OF PATHOLOGY AND GENOMIC MEDICINE Platelet count 342 150 - 400 k/uL [facility] DEPARTMENT OF PATHOLOGY AND GENOMIC MEDICINE Nucleated RBC 0.00 /100 WBC [facility] DEPARTMENT OF PATHOLOGY AND GENOMIC MEDICINE Neutrophils 70.1 (H) 39.0 - 69.0 % [facility] DEPARTMENT OF PATHOLOGY AND GENOMIC MEDICINE Lymphocytes 16.2 (L) 25.0 - 45.0 % [facility] DEPARTMENT OF PATHOLOGY AND GENOMIC MEDICINE Monocytes 6.4 0.0 - 10.0 % [facility] DEPARTMENT OF PATHOLOGY AND GENOMIC MEDICINE Eosinophils 6.8 (H) 0.0 - 5.0 % [facility] DEPARTMENT OF PATHOLOGY AND GENOMIC MEDICINE Basophils 0.1 0.0 - 1.0 % [facility] DEPARTMENT OF PATHOLOGY AND GENOMIC MEDICINE Immature granulocytes 0.4Comment: 0.0 - 1.0 % [facility] DEPARTMENT OF "Immature PATHOLOGY AND GENOMIC granulocytes" MEDICINE (promyelocytes, myelocytes, metamyelocytes) Specimen Blood Performing Organization Address City/State/Zipcode Phone Number [facility] DEPARTMENT OF PATHOLOGY AND [address] [place] [address] [facility] Amylase level (12/28/2017 7:00 AM) Amylase 20 (L) 28 - 100 U/L [facility] DEPARTMENT OF PATHOLOGY AND GENOMIC MEDICINE Specimen Plasma specimen Performing Organization Address City/State/Zipcode Phone Number [facility] DEPARTMENT OF PATHOLOGY AND [address] [place] [address] Angiogram Pe Chest (12/26/2017 5:30 PM) Narrative Performed At PROCEDURE:CT ANGIOGRAM PE CHEST RADIANT CLINICAL HISTORY:PE suspectedhigh pretest prob COMPARISON:None. TECHNIQUE: Quality of examination and flow bolus: The study is adequate for diagnostic interpretation. Contiguous 1.25 mm axial slices were performed from the lung apices to the upper abdomen following injection of intravenous iodinated contrast media without adverse reaction on a multidetector CT scanner using helical scanning technique followed by 2-D reconstructions in the sagittal and coronal planes. The dose length product for the procedure is 2099 mGy-cm CT imaging was performed with iterative reconstruction technique and/or automated exposure control to reduce radiation dose. FINDINGS: 1. No filling defects are identified in the pulmonary outflow tract, right or left main pulmonary artery, ascending or descending pulmonary artery branches. 2. The lung parenchymal window settings demonstrate consolidation in both lower lobes with small parapneumonic effusions as well as in the right upper lobe consistent with multifocal pneumonitis. 3. The multiplanar reconstructed 2-D images demonstrate no additional abnormality. 4. A tiny nonobstructing left intrarenal calculus is present and measures 4.6 mm x 3.2 mm. The attenuation of the liver is decreased relative to that of the spleen consistent with diffuse fatty infiltration. 5. Note is made of postoperative pneumoperitoneum. A surgical drain is noted in the left upper quadrant of the abdomen. Multiple surgical trev are seen along the vertical midline axis of the abdomen and pelvis. IMPRESSION: Abnormal study. 1. No evidence for pulmonary embolism. 2. Multifocal pneumonitis. 3. Postoperative pneumoperitoneum. 4. Hepatic steatosis. Nonobstructing calculus in the left kidney. [facility]-[id number] Procedure Note Interface, Radiology Results Incoming - 12/26/2017 6:06 PM CDT PROCEDURE: CT ANGIOGRAM PE CHEST CLINICAL HISTORY: PE suspected high pretest prob COMPARISON: None. TECHNIQUE: Quality of examination and flow bolus: The study is adequate for diagnostic interpretation. Contiguous 1.25 mm axial slices were performed from the lung apices to the upper abdomen following injection of intravenous iodinated contrast media without adverse reaction on a multidetector CT scanner using helical scanning technique followed by 2-D reconstructions in the sagittal and coronal planes. The dose length product for the procedure is 2099 mGy-cm CT imaging was performed with iterative reconstruction technique and/or automated exposure control to reduce radiation dose. FINDINGS: 1. No filling defects are identified in the pulmonary outflow tract, right or left main pulmonary artery, ascending or descending pulmonary artery branches. 2. The lung parenchymal window settings demonstrate consolidation in both lower lobes with small parapneumonic effusions as well as in the right upper lobe consistent with multifocal pneumonitis. 3. The multiplanar reconstructed 2-D images demonstrate no additional abnormality. 4. A tiny nonobstructing left intrarenal calculus is present and measures 4.6 mm x 3.2 mm. The attenuation of the liver is decreased relative to that of the spleen consistent with diffuse fatty infiltration. 5. Note is made of postoperative pneumoperitoneum. A surgical drain is noted in the left upper quadrant of the abdomen. Multiple surgical trev are seen along the vertical midline axis of the abdomen and pelvis. IMPRESSION: Abnormal study. 1. No evidence for pulmonary embolism. 2. Multifocal pneumonitis. 3. Postoperative pneumoperitoneum. 4. Hepatic steatosis. Nonobstructing calculus in the left kidney. [facility]-[id number] Performing Organization Address City/State/Zipcode Phone Number [facility] [address] [place] [address] CT Abdomen Pelvis W Contrast (12/26/2017 5:30 PM) Narrative Performed At Examination: CT abdomen with pelvis with [facility] COMPARISON: None. REASON FOR EXAM: Abd painunspecified, s p enucleation of pancreatic cyst and BSO TECHNIQUE: Axial 5 mm sections were obtained after intravenous injection of contrast. Coronal and sagittal reconstructions were performed. All CT scans are performed using radiation dose reduction techniques. Technical factors are evaluated and adjusted to ensure appropriate moderation of exposure. Automated dose management technology is supplied to adjust the radiation dose to minimize exposure while achieving a diagnostic quality image. FINDINGS: Lower lung dalal: There are posterior focal areas of consolidation in the costophrenic sulci. Liver: Liver density is normal there are no enhancing lesions. Biliary: The gallbladder is normal in size and there are no calculi. Spleen: Spleen size is normal. Pancreas: There is a surgical drain in the pancreatic bed with no abnormal fluid collections. The pancreas is edematous. There is postoperative free air against the anterior abdominal wall. Adrenals: The adrenal glands are normal in size. Kidneys: There is no hydronephrosis. There are no renal calculi. Lymph nodes: No retroperitonealadenopathy Vascular: Aorta and venacava diameters are normal. G.I. The bowel caliber is normal. There are small 1 and 2 cm loculations of free intraperitoneal fluid in the lower abdomen mesentery and also a 4.4 cm fluid collection in the posterior cul-de-sac of the pelvis. Pelvis: Urinary bladder outline is smooth. Skeletal: No suspicious skeletal lesions. IMPRESSION: Stable postoperative changes with a small free air inside the anterior abdominal wall. A pancreatic surgery drain is located in the pancreatic bed with no peripancreatic abnormal fluid collections. There is a small amount of mesenteric edema. [id number] Procedure Note Hm Interface, Radiology Results Incoming - 12/26/2017 6:17 PM CDT Examination: CT abdomen with pelvis with COMPARISON: None. REASON FOR EXAM: Abd pain unspecified, s p enucleation of pancreatic cyst and BSO TECHNIQUE: Axial 5 mm sections were obtained after intravenous injection of contrast. Coronal and sagittal reconstructions were performed. All CT scans are performed using radiation dose reduction techniques. Technical factors are evaluated and adjusted to ensure appropriate moderation of exposure. Automated dose management technology is supplied to adjust the radiation dose to minimize exposure while achieving a diagnostic quality image. FINDINGS: Lower lung dalal: There are posterior focal areas of consolidation in the costophrenic sulci. Liver: Liver density is normal there are no enhancing lesions. Biliary: The gallbladder is normal in size and there are no calculi. Spleen: Spleen size is normal. Pancreas: There is a surgical drain in the pancreatic bed with no abnormal fluid collections. The pancreas is edematous. There is postoperative free air against the anterior abdominal wall. Adrenals: The adrenal glands are normal in size. Kidneys: There is no hydronephrosis. There are no renal calculi. Lymph nodes: No retroperitonealadenopathy Vascular: Aorta and venacava diameters are normal. G.I. The bowel caliber is normal. There are small 1 and 2 cm loculations of free intraperitoneal fluid in the lower abdomen mesentery and also a 4.4 cm fluid collection in the posterior cul-de-sac of the pelvis. Pelvis: Urinary bladder outline is smooth. Skeletal: No suspicious skeletal lesions. IMPRESSION: Stable postoperative changes with a small free air inside the anterior abdominal wall. A pancreatic surgery drain is located in the pancreatic bed with no peripancreatic abnormal fluid collections. There is a small amount of mesenteric edema. [id number] Performing Organization Address [facility] Phone Number K[facility]ST[facility] [address] [place] [address] XR Chest 2 Vw (12/26/2017 2:26 PM) Narrative Performed At PROCEDURE:[facility] CHEST [address] CLINICAL HISTORY:Post-op surgery, SOB COMPARISON:December 24, 2017 TECHNIQUE: 2 views of the chest were performed in the AP upright and lateral projections. FINDINGS: No active pleural, parenchymal, or mediastinal abnormality is noted. Linear scarring is seen at the right apex. No change in position of the right transjugular central venous line is seen. Noacute abnormality is demonstrated of the visualized bones of the thorax. IMPRESSION: Noacute abnormality in the chest. [facility]-[id number] Procedure Note Hm Interface, Radiology Results Incoming - 12/26/2017 2:31 PM CDT PROCEDURE: XR CHEST 2 VW CLINICAL HISTORY: Post-op surgery, SOB COMPARISON: December 24, 2017 TECHNIQUE: 2 views of the chest were performed in the AP upright and lateral projections. FINDINGS: No active pleural, parenchymal, or mediastinal abnormality is noted. Linear scarring is seen at the right apex. No change in position of the right transjugular central venous line is seen. No acute abnormality is demonstrated of the visualized bones of the thorax. IMPRESSION: No acute abnormality in the chest. [facility]-[id number] Performing Organization Address [facility] Phone Number [facility] [address] [place] [address] Arterial blood gas (12/26/2017 1:24 PM) pH, arterial 7.34 (L) 7.35 - 7.45 [facility] DEPARTMENT OF PATHOLOGY AND GENOMIC MEDICINE pCO2, arterial 46 (H) 35 - 45 mmHg [facility] DEPARTMENT OF PATHOLOGY AND GENOMIC MEDICINE pO2, arterial 65 (L) 80 - 90 mmHg [facility] DEPARTMENT OF PATHOLOGY AND GENOMIC MEDICINE Bicarbonate, arterial 23.9 21.0 - 28.0 mmol/L [facility] DEPARTMENT OF PATHOLOGY AND GENOMIC MEDICINE Base excess, arterial -1 -2 - 2 mEq/L [facility] DEPARTMENT OF PATHOLOGY AND GENOMIC MEDICINE O2 saturation, arterial 93 (L) 95 - 100 % [facility] DEPARTMENT OF PATHOLOGY AND GENOMIC MEDICINE Specimen Blood Performing Organization Address [facility] Phone Number [facility] DEPARTMENT OF PATHOLOGY AND [address] [place] [address] GENOMIC MEDICINE XR Chest 1 Vw Portable (12/24/2017 12:20 PM) Narrative Performed At EXAMINATION:XR CHEST 1 VW PORTABLE [facility] CLINICAL HISTORY:Confirm new central line placement COMPARISON:None IMPRESSION: Right IJ catheter is in good position. Cardiac mediastinal silhouette is prominent, and the lungs are hypoventilated and clear. [facility]-[id number] Procedure Note Hm Interface, Radiology Results Incoming - 12/24/2017 12:34 PM CDT EXAMINATION: XR CHEST 1 VW PORTABLE CLINICAL HISTORY: Confirm new central line placement COMPARISON: None IMPRESSION: Right IJ catheter is in good position. Cardiac mediastinal silhouette is prominent, and the lungs are hypoventilated and clear. [facility]-[id number] Performing Organization Address [facility] Phone Number [facility] [address] [place] [address] Surgical pathology request (12/24/2017 10:19 AM)Only the most recent of3 resultswithin the time period is included. [facility] DEPARTMENT OF PATHOLOGY AND GENOMIC MEDICINE Surgical pathology See link below for PDF Lab [facility] DEPARTMENT OF report Report PATHOLOGY AND GENOMIC MEDICINE Result status This is Supplemental Report [facility] DEPARTMENT OF to [id number] PATHOLOGY AND GENOMIC MEDICINE Performing Organization Address [facility] Phone Number [facility] DEPARTMENT OF PATHOLOGY AND [address] [place] [address] GENOMIC MEDICINE ECG 12 lead (12/24/2017 7:51 AM) Ventricular rate 94 [facility] MUSE Atrial rate 94 [facility] MUSE AZ interval 156 [facility] MUSE QRSD interval 78 HM MUSE QT interval 366 HM MUSE QTC interval 457 [facility] MUSE P axis 1 50 HM MUSE QRS axis 1 17 HM MUSE T wave axis 2 [facility] MUSE EKG impression Normal sinus rhythm-Minimal voltage criteria [facility] MUSE for LVH, may be normal variant-Borderline ECG-No previous ECGs available- Performing Organization Address City/[facility] Phone Number [facility] MUSE [address] [place] [phone] Partial thromboplastin time, activated (12/24/2017 7:49 AM) PTT 29.8 23.0 - 36.0 sec [facility] DEPARTMENT OF PATHOLOGY Comment: AND GENOMIC MEDICINE PTT therapeutic range for unfractionated heparin is 61.0-112.0 seconds which corresponds to Anti-Xa 0.3-0.7 U/ml. Specimen Blood Performing Organization Address City/[facility] Phone Number [facility] DEPARTMENT OF PATHOLOGY AND [address] [place] [address] [facility] Prothrombin time with INR (12/24/2017 7:49 AM) Prothrombin time 13.9 12.0 - 15.0 sec [facility] DEPARTMENT OF PATHOLOGY AND GENOMIC MEDICINE INR 1.1 [facility] DEPARTMENT OF Comment: PATHOLOGY AND GENOMIC The International Normalized Ratio (INR) is a therapeutic MEDICINE monitoring tool for patients who are stable on oral anticoagulant therapy. An INR of 2.0-3.0 is suggested for deep vein thrombosis/pulmonary embolism. Specimen Blood Performing Organization Address City/[facility] Phone Number [facility] DEPARTMENT OF PATHOLOGY AND [address] [place] [address] [employer] Prepare RBC, 2 Units (12/24/2017 7:49 AM) Product name [employer]heresis Red Cell AS3 #2 LR [facility] DEPARTMENT OF PATHOLOGY AND GENOMIC MEDICINE Unit number [id number] [facility] DEPARTMENT OF PATHOLOGY AND GENOMIC MEDICINE Product code [id number] [facility] DEPARTMENT OF PATHOLOGY AND GENOMIC MEDICINE Dispense status Returned to not [facility] DEPARTMENT OF transfused PATHOLOGY AND GENOMIC MEDICINE Blood expiration date [facility] DEPARTMENT OF PATHOLOGY AND GENOMIC MEDICINE Blood type code 9500 [facility] DEPARTMENT OF PATHOLOGY AND GENOMIC MEDICINE Blood type O NEGATIVE [facility] DEPARTMENT OF PATHOLOGY AND GENOMIC MEDICINE Product name Red Blood Cells -1, [facility] DEPARTMENT OF Leukored PATHOLOGY AND GENOMIC MEDICINE Unit number [id number] [facility] DEPARTMENT OF PATHOLOGY AND GENOMIC MEDICINE Product code [id number] [facility] DEPARTMENT OF PATHOLOGY AND GENOMIC MEDICINE Dispense status Returned to not [facility] DEPARTMENT OF transfused PATHOLOGY AND GENOMIC MEDICINE Blood expiration date [facility] DEPARTMENT OF PATHOLOGY AND GENOMIC MEDICINE Blood type code 9500 [facility] DEPARTMENT OF PATHOLOGY AND GENOMIC MEDICINE Blood type O NEGATIVE [facility] DEPARTMENT OF PATHOLOGY AND GENOMIC MEDICINE Performing Organization Address City/[facility]/Zipcode Phone Number [facility] DEPARTMENT OF PATHOLOGY AND [address] [place] [address] GENOMIC MEDICINE Type and screen (12/24/2017 7:49 AM) ABO grouping O [facility] DEPARTMENT OF PATHOLOGY AND GENOMIC MEDICINE Rh type NEG [facility] DEPARTMENT OF PATHOLOGY AND GENOMIC MEDICINE Antibody screen (gel) NEG [facility] DEPARTMENT OF PATHOLOGY AND GENOMIC MEDICINE Specimen Blood Performing Organization Address City/[facility] Cent[facility] Phone Number [facility] DEPARTMENT OF PATHOLOGY AND [address] Abdomen W Wo Contrast (11/11/2017 6:15 PM) Narrative Performed At EXAMINATION:CT ABDOMEN W WO CONTRAST [facility] CLINICAL HISTORY:K86.9 Disease of pancreasunspecified, PANCREATIC MASS TECHNIQUE: Multiple axial images of the abdomen were obtained before and after intravenous administration of contrast. Sagittal and coronal computerized reformatted images were also obtained. Radiation dose reduction technique was utilized. COMPARISON:None. IMPRESSION: 1. There is a 2.5 cm mass projecting superiorly from the body of the pancreas. Differential diagnosis includes neuroendocrine tumor and adenocarcinoma. Clinical correlation and follow-up recommended. 2.Liver, spleen, adrenals, and kidneys do not demonstrate any masses. There is a tiny 1 cm cyst in the left kidney which does not require follow-up. There is a tiny calculus in the lower pole of the left kidney. 3.There is no retroperitoneal adenopathy or upper abdominal ascites. 4.There is no intestinal obstruction. [facility]-[id number] Procedure Note Interface, Radiology Results Incoming - 11/11/2017 6:52 PM CDT EXAMINATION: CT ABDOMEN W WO CONTRAST CLINICAL HISTORY: K86.9 Disease of pancreas unspecified, PANCREATIC MASS TECHNIQUE: Multiple axial images of the abdomen were obtained before and after intravenous administration of contrast. Sagittal and coronal computerized reformatted images were also obtained. Radiation dose reduction technique was utilized. COMPARISON: None. IMPRESSION: 1. There is a 2.5 cm mass projecting superiorly from the body of the pancreas. Differential diagnosis includes neuroendocrine tumor and adenocarcinoma. Clinical correlation and follow-up recommended. 2. Liver, spleen, adrenals, and kidneys do not demonstrate any masses. There is a tiny 1 cm cyst in the left kidney which does not require follow-up. There is a tiny calculus in the lower pole of the left kidney. 3. There is no retroperitoneal adenopathy or upper abdominal ascites. 4. There is no intestinal obstruction. [facility]-[id number] Performing Organization Address City/[facility]/Zipcode Phone Number KRISTIN [address] [place] [address] Cancer antigen 19-9 (11/04/2017 3:24 PM) CA 19-9 10 <34 U/mL [facility] Comment: This test was performed using the Siemens chemiluminescent method. Values obtained from different assay methods cannot be used interchangeably. CA 19-9 levels, regardless of value, should not be interpreted as absolute evidence of the presence or absence of disease. Specimen Blood Narrative Performed At FASTING:NO [facility] FASTING: NO Resulting Agency Comment Performing Organization Information: Site ID: [id number] Name: [facility] Address: [address] [place] [id number] Director: Dr. Cody Israel Performing Organization Address [facility] Phone Number [facility] [address] [place] [address] Alpha fetoprotein (11/04/2017 3:24 PM) Alpha fetoprotein 3.5 ng/mL [employer] Comment: II Reference Range: <6.1 The use of AFP as a tumor marker in females is not recommended. This test was performed using the [employer] chemiluminescent method. Values obtained from different assay methods cannot be used interchangeably. AFP levels, regardless of value, should not be interpreted as absolute evidence of the presence or absence of disease. Specimen Blood Narrative Performed At FASTING:NO [facility] FASTING: NO Resulting Agency Comment Performing Organization Information: Site ID: [id number] Name: [facility] Address: [address] [place] [id number] Director: Dr. Cody Israel Performing Organization Address [facility] Phone Number [facility] [address] [place] [address] Cancer antigen 125 (11/04/2017 3:24 PM) CA 125 6 <35 U/mL [facility] Comment: This test was performed using the [place] [employer] Chemiluminescent method. Values obtained from different assay methods cannot be used interchangeably. CA 125 levels, regardless of value, should not be interpreted as absolute evidence of the presence or absence of disease. Specimen Blood Narrative Performed At FASTING:NO [employer] FASTING: NO Resulting Agency Comment Performing Organization Information: Site ID: [id number] Name: [facility] Address: [address] [place] [address] Director: Dr. Cody Israel Performing Organization Address City/[facility] Cent[facility]ode Phone Number AfterYes[address] [address] Carcinoembryonic antigen (CEA) (11/04/2017 3:24 PM) CEA 0.6 See Note: ng/mL [employer] [place] Comment: Reference Range: Non-Smoker: <2.5 Smoker: <5.0 This test was performed using the Siemens chemiluminescent method. Values obtained from different assay methods cannot be used interchangeably. CEA levels, regardless of value, should not be interpreted as absolute evidence of the presence or absence of disease. Specimen Blood Narrative Performed At FASTING:NO [facility] FASTING: NO Resulting Agency Comment Performing Organization Information: Site ID: [id number] Name: [facility] Address: [address] [place] [address] Director: Anna Zamora Performing Organization Address [facility] Phone Number AfterYes [address] [address] after 02/07/2017 Insurance Payer Benefit Plan / Group Subscriber ID Type Phone Address BCBS BCBS CHOICE PPO/[employer] EMPL PPO xxxxxxxxxxxx PPO Home: [address] [facility] [phone] [place] [id number]
[2018-02-08] MEDS ORDERED: FENTANYL CITR 100 MCG/2 ML ONE (20:03)
[2018-02-08] MEDS ORDERED: FAMOTIDINE 20 MG/2 ML VIAL IV ONE (20:03)
[2018-02-08 20:15] LABS: Absolute Lymphocytes (CBC) 2.5 K/uL (0.7-4.9); Absolute Monocytes 0.4 K/uL (0.1-1.3); Absolute Neutrophil 3.5 K/uL (1.8-8.0); Basophils % 0.4 % (0-1.3); Eosinophils % 6.2 % (0-4.4); Hematocrit 33.5 % (36.0-45.0); Lymphocytes % 36.8 % (15.3-44.8); MCH 23.8 pg (27.0-35.0); MCV 75.2 fL (80-100); MPV 8.4 fL (7.6-11.3); Monocytes % 5.7 % (3.3-12.3); RBC Red Blood Cell Count 4.45 M/uL (3.86-4.86)
[2018-02-08 20:31] LABS: ALT/SGPT 40 U/L (12-78); AST/SGOT 38 U/L (15-37); Albumin 3.5 g/dL (3.4-5.0); Alkaline Phosphatase 84 U/L (45-117); BUN Blood Urea Nitrogen 10 mg/dL (7-18); Bicarbonate 27 mmol/L (21-32); Bilirubin Direct < 0.1 mg/dL (0-0.2); Bilirubin Total 0.3 mg/dL (0.2-1.0); Glucose Level 121 mg/dL (74-106); Lipase 223 U/L (73-393); Potassium 3.7 mmol/L (3.5-5.1); Protein, Total 8.1 g/dL (6.4-8.2); Sodium Level 141 mmol/L (136-145)
--- NOTE | 2018-02-08 21:43 | RAD REPORT ---
EXAM DESCRIPTION: CT - Chest Abdomen Pelvis W Cont - 02/08/2018 9:25 pm CLINICAL HISTORY: Left-sided chest pain, left-sided abdomen pain COMPARISON: CT abdomen and pelvis September 2017 TECHNIQUE: Following dynamic enhancement using 100 milliliters nonionic IV contrast, axial imaging o f the chest, abdomen and pelvis was performed. Biphasic technique was utilized through the abdomen. Oral contrast was administered. All CT scans are performed using dose optimization technique as appropriate and may include automated exposure control or mA/KV adjustment according to patient size. FINDINGS: Minimal scarring or atelectasis in each lung base. No acute lung parenchymal process. No p leural effusion, pleural thickening or pneumothorax. No significant aortic or pulmonary arterial tree finding. Mediastinal and hilar regions show no mass or abnormal lymphadenopathy. No chest wall mass or axillary lymphadenopathy. Liver and spleen show no suspicious findings. Trace amount of fluid near the spleen is likely chronic seroma. 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 Surgical clips are present. Small focal low-density millimeter area at the b jose j of pancreas is probably postsurgical remnant. Gallbladder and biliary tree are unremarkable. Gal lstones can be occult on CT imaging. Symmetric renal function is seen with no mass or hydronephrosis. No adrenal abnormalities. No dilated bowel loops or focal bowel wall thickening. No acute GI findings seen. Postsurgical changes are noted to the anterior abdominal wall. Uterus and ovaries are absent. Postsur gical stranding in the adnexa and pelvic floor noted. Stranding along the abdominal incision is not o utside of normal range. No acute or destructive bone process. Lower lumbar facet degenerative changes are present. No significant vascular findings. IMPRESSION: CT chest imaging shows no mass, infiltrate or other acute finding. Pancreatic mass has been resected since the last examination. The cystic mass in the pelvis has also been or. Bilateral oophorectomy appears to been performed as well. No acute or worrisome CT abdomen or pelvis finding.
--- NOTE | 2018-02-08 22:17 | EDPHYS ---
Physician Documentation [facility] Name: Kennedi Markham Age: 52 yrs Sex: Female : 1965 Arrival Date: 02/08/2018 Time: 19:29 Bed 16 Private MD: ED Physician David Cortés HPI: 02/08 22:14 This 52 yrs old Black Female presents to ER via EMS with complaints of Chest Pain. gs 22:14 The patient or guardian reports chest pain that is located primarily in the epigastric gs area. Onset: gradually, just prior to arrival, 1 hour(s) ago. The pain does not radiate. Associated signs and symptoms: Pertinent positives: shortness of breath. Associated signs and symptoms: Pertinent positives: nausea. The chest pain is described as a heaviness. Duration: The patient or guardian reports a single episode, that is still ongoing, but improving. Modifying factors: The symptoms are alleviated by nothing. the symptoms are aggravated by nothing. Severity of pain: At its worst the pain was moderate in the emergency department the pain has improved mildly. 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 - Social history:: Smoking status: Patient/guardian denies using tobacco, Patient/guardian denies using alcohol. - Ebola Screening: : Patient negative for fever greater than or equal to 101.5 degrees Fahrenheit, and additional compatible Ebola Virus Disease symptoms Patient denies exposure to infectious person Patient denies travel to an Ebola-affected area in the 21 days before illness onset. ROS: 22:14 All other systems are negative. gs Exam: 22:14 Head/Face: Normocephalic, atraumatic. Eyes: Pupils equal round and reactive to light, gs extra-ocular motions intact. Lids and lashes normal. Conjunctiva and sclera are non-icteric and not injected. Cornea within normal limits. Periorbital areas with no swelling, redness, or edema. ENT: Nares patent. No nasal discharge, no septal abnormalities noted. Tympanic membranes are normal and external auditory canals are clear. Oropharynx with no redness, swelling, or masses, exudates, or evidence of obstruction, uvula midline. Mucous membranes moist. Neck: Trachea midline, no thyromegaly or masses palpated, and no cervical lymphadenopathy. Supple, full range of motion without nuchal rigidity, or vertebral point tenderness. No Meningismus. Chest/axilla: Normal chest wall appearance and motion. Nontender with no deformity. No lesions are appreciated. Cardiovascular: Regular rate and rhythm with a normal S1 and S2. No gallops, murmurs, or rubs. Normal PMI, no JVD. No pulse deficits. Respiratory: Lungs have equal breath sounds bilaterally, clear to auscultation and percussion. No rales, rhonchi or wheezes noted. No increased work of breathing, no retractions or nasal flaring. Back: No spinal tenderness. No costovertebral tenderness. Full range of motion. 22:14 Skin: Warm, dry with normal turgor. Normal color with no rashes, no lesions, and no evidence of cellulitis. MS/ Extremity: Pulses equal, no cyanosis. Neurovascular intact. Full, normal range of motion. Neuro: Awake and alert, GCS 15, oriented to person, place, time, and situation. Cranial nerves II-XII grossly intact. Motor strength 5/5 in all extremities. Sensory grossly intact. Cerebellar exam normal. Normal gait. 22:14 Constitutional: The patient appears alert, awake, uncomfortable. 22:14 Abdomen/GI: Palpation: moderate abdominal tenderness, in the epigastric area, rebound tenderness, is not appreciated. Vital Signs: 19:25 BP 139 / 83; Pulse 104; Resp 24; Temp 98.7(O); Pulse Ox 100% on R/A; Weight 115.21 kg fc (R); Height 5 ft. 5 in. (165.10 cm) (R); Pain 9/10; 20:20 BP 130 / 78; Pulse 78; Resp 18; Pulse Ox 97% ; Pain 6/10; fu 20:40 BP 126 / 85; Pulse 82; Resp 18; Pulse Ox 97% ; fu 23:00 BP 117 / 78; Pulse 74; Resp 16; Pulse Ox 99% ; Pain 6/10; fu 23:00 BP 113 / 66; Pulse 80; Resp 16; Pulse Ox 100% ; Pain 6/10; fu 02/09 00:00 BP 104 / 77; Pulse 72; Resp 16; Pulse Ox 100% ; Pain 4/10; fu 02/08 19:25 Body Mass Index 42.27 (115.21 kg, 165.10 cm) fc MDM: 02/08 19:46 Patient medically screened. 22:14 Differential diagnosis: acute myocardial infarction, coronary artery disease gs pancreatitis, peptic ulcer disease. Differential diagnosis: thoracic aortic disection. Data reviewed: vital signs, nurses notes. Response to treatment: the patient's symptoms have markedly improved after treatment, and as a result, I will admit patient. 02/08 19:49 Order name: Basic Metabolic Panel; Complete Time: 21:41 02/08 19:49 Order name: CBC with Diff; Complete Time: 21:41 02/08 19:49 Order name: Hepatic Function; Complete Time: 21:41 02/08 19:49 Order name: Lipase; Complete Time: 21:41 02/08 19:49 Order name: Urine Microscopic Only 02/08 19:49 Order name: Troponin (emerg Dept Use Only); Complete Time: 21:41 02/08 19:49 Order name: IV Saline Lock; Complete Time: 20:08 02/08 19:49 Order name: Labs collected and sent; Complete Time: 20:08 02/08 19:49 Order name: EKG; Complete Time: 19:50 02/08 19:55 Order name: CT Chest, Abdomen, Pelvis - W/Contrast; Complete Time: 21:51 02/08 19:49 Order name: EKG - Nurse/Tech; Complete Time: 20:16 gs Administered Medications: 20:10 Drug: Pepcid 20 mg Route: IVP; Site: right antecubital; fu 20:10 Drug: fentaNYL (PF) 50 mcg Route: IVP; Site: right antecubital; fu 22:57 Not Given (given by EMS): Aspirin Chewable Tablet 324 mg PO once; 81 mg tablets x 4 fc Disposition: 22:14 Critical Care:. Disposition: 02/08/18 22:17 Hospitalization ordered by Chanel Mcneil for Observation. Preliminary diagnosis is Chest pain, unspecified. - Bed requested for Telemetry/MedSurg (observation). - Status is Observation. fu - Condition is Stable. - Problem is new. - Symptoms have improved. UTI on Admission? No Critical care time excluding procedures: 22:14 Critical care time: Bedside Care: 10 minutes, Consultation: 10 minutes, Family gs Intervention: 10 minutes. Total time: 30 minutes Signatures: Dispatcher [employer] EDMS Kandice Blanco RN RN Dayanara Carlos RN RN David Cortés MD MD Tres Hernandez RN RN Corrections: (The following items were deleted from the chart) 23:03 22:17 Hospitalization Ordered by Chanel Mcneil MD for Observation. Preliminary diagnosis is Chest pain, unspecified. Bed requested for Telemetry/MedSurg (observation). Status is Observation. Condition is Stable. Problem is new. Symptoms have improved. UTI on Admission? No. 02/09 00:27 08 23:03 02/08/2018 22:17 Hospitalization Ordered by Chanel Mcneil MD for fu Observation. Preliminary diagnosis is Chest pain, unspecified. Bed requested for Telemetry/MedSurg (observation). Status is Observation. Condition is Stable. Problem is new. Symptoms have improved. UTI on Admission? No.
--- NOTE | 2018-02-08 22:17 | ER ---
Nurse's Notes [facility] Name: Kennedi Markham Age: 52 yrs Sex: Female : 1965 Arrival Date: 02/08/2018 Time: 19:29 Bed 16 Private MD: Diagnosis: Chest pain, unspecified Presentation: 02/08 19:25 Presenting complaint: EMS states: that pt is having chest pain that started at 1815 fc that radiates to left side. Started after eating. Pt did vomit x 1 on the ambulance. Pt is having shortness of breath. Transition of care: patient was not received from another setting of care. Onset of symptoms was February 08, 2018 at 18:15. Risk Assessment: Do you want to hurt yourself or someone else? Patient reports no desire to harm self or others. Initial Sepsis Screen: Does the patient meet any 2 criteria? RR > 20 per min. HR > 90 bpm. No. Patient's initial sepsis screen is negative. Does the patient have a suspected source of infection? No. Patient's initial sepsis screen is negative. Care prior to arrival: Medication(s) given: ASA, 81 mg, x 4, Nitroglycerin, 0.4 mg SL x 1, zofran 4 mg, IV initiated. 20 GA, in the right antecubital area, Glucose check: 136. 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 - Social history:: Smoking status: Patient/guardian denies using tobacco, Patient/guardian denies using alcohol. - Ebola Screening: : Patient negative for fever greater than or equal to 101.5 degrees Fahrenheit, and additional compatible Ebola Virus Disease symptoms Patient denies exposure to infectious person Patient denies travel to an Ebola-affected area in the 21 days before illness onset. Screenin:38 Abuse screen: Denies threats or abuse. Nutritional screening: No deficits noted. fc Tuberculosis screening: No symptoms or risk factors identified. Fall Risk None identified. Assessment: 19:30 General: Appears uncomfortable, Behavior is appropriate for age. Pain: Complains of lp1 pain in epigastric area Pain radiates to chest Pain currently is 9 out of 10 on a pain scale. Quality of pain is described as sharp, Pain began suddenly, Aggravated by eating, Noted to be grimacing. Neuro: Level of Consciousness is awake, alert, obeys commands, Oriented to person, place, time, situation. Cardiovascular: Patient's skin is warm and dry. Respiratory: Respiratory effort is even, unlabored, Breath sounds are clear bilaterally. GI: Abdomen is obese, Bowel sounds present X 4 quads. Abdomen is tender to palpation X 4 quads. Reports upper abdominal pain, nausea, vomiting. : No signs and/or symptoms were reported regarding the genitourinary system. EENT: No signs and/or symptoms were reported regarding the EENT system. Derm: Skin is intact, Skin is dry, Skin is normal. Musculoskeletal: Circulation, motion, and sensation intact. 21:43 Reassessment: Patient is alert, oriented x 3, equal unlabored respirations, skin fu warm/dry/pink. Pain: Complains of pain in abdomen. Respiratory: Respiratory effort is even, unlabored. 23:00 Reassessment: Patient appears in no apparent distress at this time. Patient is alert, fu oriented x 3, equal unlabored respirations, skin warm/dry/pink. General: Appears in no apparent distress. comfortable, Behavior is calm, cooperative, appropriate for age. Pain: Complains of pain in epigastric area Pain currently is 6 out of 10 on a pain scale. Neuro: Level of Consciousness is awake, alert, obeys commands, Oriented to person, place, time, situation. Respiratory: Respiratory effort is even, unlabored. Vital Signs: 19:25 BP 139 / 83; Pulse 104; Resp 24; Temp 98.7(O); Pulse Ox 100% on R/A; Weight 115.21 kg fc (R); Height 5 ft. 5 in. (165.10 cm) (R); Pain 9/10; 20:20 BP 130 / 78; Pulse 78; Resp 18; Pulse Ox 97% ; Pain 6/10; fu 20:40 BP 126 / 85; Pulse 82; Resp 18; Pulse Ox 97% ; fu 23:00 BP 117 / 78; Pulse 74; Resp 16; Pulse Ox 99% ; Pain 6/10; fu 23:00 BP 113 / 66; Pulse 80; Resp 16; Pulse Ox 100% ; Pain 6/10; fu 02/09 00:00 BP 104 / 77; Pulse 72; Resp 16; Pulse Ox 100% ; Pain 4/10; fu 08 19:25 Body Mass Index 42.27 (115.21 kg, 165.10 cm) fc ED Course: 02/08 19:25 Arm band placed on Patient placed in an exam room, on a stretcher. fc 19:25 Patient has correct armband on for positive identification. Placed in gown. Bed in low fc position. Call light in reach. Side rails up X2. monitoring and evaluation advisor on. Pulse ox on. NIBP on. 19:25 EKG done, by ED staff, reviewed by David Cortés MD. fc 19:25 Maintain EMS IV. Dressing intact. Good blood return noted. Site clean \T\ dry. Gauge \T\ fc site: 20 gauge to right a/c. 19:29 Patient arrived in ED. fc 19:30 Patient maintains SpO2 saturation greater than 95% on room air. lp1 19:31 Shiloh Fink RN is Primary Nurse. lp1 19:33 Triage completed. fc 19:36 David Cortés MD is Attending Physician. gs 20:08 Basic Metabolic Panel Sent. jb5 20:08 CBC with Diff Sent. jb5 20:08 Hepatic Function Sent. jb5 20:08 Lipase Sent. jb5 21:[address] via stretcher. fu 21:26 CT Chest, Abdomen, Pelvis - W/Contrast In Process Unspecified. EDMS 21:26 CT completed. Patient tolerated procedure well. Patient moved back from CT. kw1 22:16 Chanel Mcneil MD is Hospitalizing Provider. gs 23:30 No provider procedures requiring assistance completed. fu 02/09 00:15 Report given to JIM Vicente. Patient to be admitted to 104. fu Administered Medications: 02/08 20:10 Drug: Pepcid 20 mg Route: IVP; Site: right antecubital; fu 20:10 Drug: fentaNYL (PF) 50 mcg Route: IVP; Site: right antecubital; fu 22:57 Not Given (given by EMS): Aspirin Chewable Tablet 324 mg PO once; 81 mg tablets x 4 fc Outcome: 22:17 Decision to Hospitalize by Provider. 02/09 00:00 Instructed on the need for admit. fu 00:22 Admitted to Tele accompanied by tech, via stretcher, room 417. fu 00:27 Patient left the ED. fu Signatures: Dispatcher [employer] EDMS Dayanara Carlos RN RN Shiloh Fink RN RN lp1 Josselyn Rice5 David Cortés MD MD Tres Hernandez RN RN Kandice Hendricks kw1 Corrections: (The following items were deleted from the chart) 02/08 23:35 23:00 BP 113 / 66; Pulse 80bpm; Resp 16bpm; Pulse Ox 100%; Pain 5/10; fu fu
[2018-02-08] MEDS ORDERED: ASPIRIN 81 MG CHEWABLE TABLET ONE (23:00)
--- NOTE | 2018-02-08 23:16 | P.HP ---
Certification for Inpatient Patient admitted to: Observation With expected LOS: <2 Midnights Practitioner: I am a practitioner with admitting privileges, knowledge of patient current condition, hospital course, and medical plan of care. Services: Services provided to patient in accordance with Admission requirements found in Title 42 Section 412.3 of the Code of Federal Regulations Patient History Date of Service: 02/08/18 Reason for admission: chest pain History of Present Illness: Ms Markham is a 52 years old woman with history of obesity, who came to ED complaining of chest pain, starting today at 18:15. She describe the pain as heavy feeling in substernal area, associated with SOB, nausea and vomiting. She had diaphoresis as well when the pain start, intensity of the pain 8/10, radiated to her left arm. She has never had this kind of symptoms before. Lab work remarkable for Troponin I 0.05, EKG shows sinus rhythm at [address]-T abnormalties. Allergies No Known Aller Allergy (Uncoded 08/28/17 16:03) Unknown No Known Allergies Allergy (Uncoded 09/30/17 13:36) Unknown Home medications list reviewed: Yes - Past Medical/Surgical History -: obesity -: pancreatic mass -: oophorectomy -: pancratic mass removal - Family History Family History: Reviewed- Non-Contributory - Social History Smoking Status: Never smoker Alcohol use: No CD- Drugs: No Place of Residence: Home Review of Systems 10-point ROS is otherwise unremarkable Physical Examination - Physical Exam General: Alert, In no apparent distress HEENT: Atraumatic, PERRLA, Mucous membr. moist/pink, EOMI, Sclerae nonicteric Neck: Supple, 2+ carotid pulse no bruit, No LAD, Without JVD or thyroid abnormality Respiratory: Clear to auscultation bilaterally, Normal air movement Cardiovascular: Regular rate/rhythm, Normal S1 S2 Gastrointestinal: Normal bowel sounds, No tenderness Musculoskeletal: No tenderness Integumentary: No rashes Neurological: Normal speech, Normal strength at 5/5 x4 extr, Normal tone, Normal affect Lymphatics: No axilla or inguinal lymphadenopathy - Studies Laboratory Data (last 24 hrs) 02/08/18 19:25: WBC 6.9, Hgb 10.6 L, Hct 33.5 L, Plt Count 408 H 02/08/18 19:25: Sodium 141, Potassium 3.7, BUN 10, Creatinine 1.10, Glucose 121 H, Total Bilirubin 0.3, AST 38 H, ALT 40, Alkaline Phosphatase 84, Lipase 223 Assessment and Plan - Problems (Diagnosis) (1) Obesity Current Visit: Yes Status: Acute Qualifiers: Obesity type: unspecified obesity type Obesity classification: unspecified obesity classification Serious obesity comorbidity presence: unspecified whether serious comorbidity present Qualified Code(s): E66.9 - Obesity, unspecified (2) Pancreatic mass Current Visit: Yes Status: Acute (3) Chest pain Current Visit: Yes Status: Acute Qualifiers: Chest pain type: precordial pain Qualified Code(s): R07.2 - Precordial pain - Plan Ms Markham will be admtted to the hospital due to Typical chest pain. Initial trop I is mildly elevated, EKG without ST-T abnormalities. Will order serial cardiac enzymes, EKG, ECHO in AM, consult cardiology. - Advance Directives Does patient have a Living Will: No Does patient have a Durable POA for Healthcare: No - Code Status/Comfort Care Code Status Assessed: Yes Code Status: Full Code
[2018-02-09] MEDS ORDERED: ONDANSETRON 4 MG/2 ML VIAL IV PRN (00:36)
[2018-02-09] MEDS ORDERED: ACETAMINOPHEN 500 MG TAB PO PRN (00:36)
[2018-02-09] MEDS ORDERED: NITROGLYCERIN 0.4 MG/TAB SL ONE (01:32)
[2018-02-09 01:33] LABS: Urine Appearance CLEAR; Urine Bilirubin NEGATIVE (NEG); Urine Blood NEGATIVE (NEG); Urine Color YELLOW; Urine Glucose NEGATIVE (NEG); Urine Protein NEGATIVE (NEG); Urine Specific Gravity >=1.030 (1.005-1.030); Urine Urobilinogen 0.2 mg/dL (0.2-1.0); Urine pH 5.5 (5.0-7.0)
[2018-02-09 01:55] LABS: Urine Bacteria <20 /HPF (<20); Urine Culture Reflex Order NOT NEEDED; Urine RBC NONE SEEN /HPF (NONE SEEN)
[2018-02-09] MEDS: ENOXAPARIN 100 MG/ML SYR SQ SCH ×3 (02:02→21:02)
--- NOTE | 2018-02-09 05:41 | EKG ---
Test Date: 2018-02-08 Test Time: 19:24:21 Plastics Seasoner Operator: MALKA MEASUREMENT RESULTS: Intervals: Rate: 97 [place]: 140 QRSD: 72 QT: 342 QTc: 434 [place]: P: 53 [place]: 140 QRS: 30 T: 18 INTERPRETIVE STATEMENTS: Normal sinus rhythm Normal ECG Compared to ECG 12/14/2010 20:09:36 No significant changes Electronically Signed On 02-09-18 05:40:19 CDT by Chivo Armendariz
[2018-02-09 06:15] LABS: Absolute Lymphocytes (CBC) 2.3 K/uL (0.7-4.9); Absolute Monocytes 0.4 K/uL (0.1-1.3); Absolute Neutrophil 3.5 K/uL (1.8-8.0); Basophils % 0.5 % (0-1.3); Eosinophils % 5.2 % (0-4.4); Hematocrit 31.9 % (36.0-45.0); Lymphocytes % 34.6 % (15.3-44.8); MCH 24.2 pg (27.0-35.0); MCV 75.7 fL (80-100); MPV 8.5 fL (7.6-11.3); Monocytes % 6.1 % (3.3-12.3); RBC Red Blood Cell Count 4.22 M/uL (3.86-4.86)
[2018-02-09 06:28] LABS: Potassium 3.7 mmol/L (3.5-5.1)
[2018-02-09] MEDS ORDERED: REGADENOSON 0.4 MG/5 ML SYR IV ONE (07:51)
[2018-02-09] MEDS: ASPIRIN EC 81 MG TAB PO SCH (08:46)
[2018-02-09] MEDS: HYDROCODONE/APAP 10/325 TAB PO PRN (11:14)
--- NOTE | 2018-02-09 11:21 | CON ---
Identification: A 52-year-old woman. Additional Attending Physician: Dr. Chanel Cedeño. Chief Complaint: Chest pain. History Of Present Illness: Ms. Markham started getting chest pain last night. It is a constant heav y feeling on her chest and she has been in the hospital. EKGs are normal. Cardiac enzymes are borde rline, not rising or falling. She has a history of pancreatic cancer and underwent a resection of it in November at [facility]. Had no cardiac issues then. Never had myocardial infarction or stro ke before. She denies any history of diabetes, tobacco use, hypertension, dyslipidemia. Medications: She uses ibuprofen, hydrocodone. Allergies: ALLERGIC TO PENICILLIN. Physical Examination: Vital Signs: 5 feet 5 inches, 255 pounds. General: Alert, oriented, pleasant, not in distress. Lungs: Clear. Heart: Within normal limits. Carotids: No bruit. Extremities: trace edema. No cyanosis or clubbing. Laboratory Data: She has 2 troponins of 0.05 about 5 hours apart. If the other troponin stay about the same, then I think we should do an echo and pharmacologic stress test before lunging to a cardiac cath. This may be one of the numerous patients with nonspecific tr oponin elevation without CAD. We will try and get better idea of what we are dealing with, with noninvasive testing before deciding on a cardiac cath. SHAQ/ALEKS Voice ID: [id number] Report ID: [id number]
--- NOTE | 2018-02-09 12:37 | TREADPHA ---
DX: CHEST PAIN Date of Study: 02/09/2018 Ht: 5 5 Wt: 255 lb 3 oz Consulting Physician: RONALD MEDICATIONS: TYLENOL, ASPIRIN, LOVENOX, ZOFRAN HISTORY: 52 YEAR OLD FEMALE HERE FOR CHEST PAIN. HISTORY OF ANXIETY AND PANCREATIC CANCER. PHYSICIAL EXAMINATION: RESTING B.P.: 123/80 RESTING H.R.: 75 RESTING EKG: NORMAL PROTOCOL: LEXISCAN EXERCISE TIME: 3:30 B.P. AT [place]AK STRESS: 137/80 IMPRESSION: LEXISCAN STRESS TEST PERFORMED. CARDIOLITE INJECTED PER PROTOCOL. NO ARRHTYHMIA NOTED. DENIES ANY CHEST PAIN. SEE NUCLEAR MEDICINE REPORT. NON-DIAGNOSTIC ELECTROCARDIOGRAM WITH LEXISCAN STRESS.
--- NOTE | 2018-02-09 12:40 | EKG ---
Test Date: 2018-02-09 Test Time: 07:56:39 Deli Cook: ERIN MEASUREMENT RESULTS: Intervals: Rate: 68 [place]: 160 QRSD: 80 QT: 404 QTc: 429 [place]: P: 47 [place]: 160 QRS: 33 T: 33 INTERPRETIVE STATEMENTS: Normal sinus rhythm Normal ECG Compared to ECG 02/08/2018 19:24:21 No significant changes Electronically Signed On 02-09-18 12:39:49 CDT by Chivo Armendariz
--- NOTE | 2018-02-09 13:18 | RAD REPORT ---
EXAM DESCRIPTION: NM - Rest Stress Cardiac Imaging - 02/09/2018 1:07 pm CLINICAL HISTORY: Chest pain COMPARISON: None. TECHNIQUE: The patient was administered 10.6 mCi of Tc 99m Sestamibi prior to resting SPECT imaging of the heart. The patient was then administered 31.8 mCi of Tc 99m Sestamibi following exercise or ph armacologic stress. Multiplanar SPECT images were reviewed. FINDINGS: The end diastolic volume is 70 ml, the end systolic volume is 18 ml, and the ejection frac tion is 74 %. No stress-induced ischemic changes are identifiable. Relative decrease in activity along the inferola teral wall mid and apex portion is not clearly different between rest and stress imaging. This is fav ored to be attenuation artifact but is potentially scarring. IMPRESSION: No stress-induced ischemia. Fixed defect inferolateral wall is probably attenuation artifact rather than scarring. Ventricular volumes and ejection fraction are normal.
--- NOTE | 2018-02-09 14:48 | PN ---
Date of Progress Note: 02/09/2018 Subjective: The patient seen and examined. Chart reviewed and case discussed with RN. The patient states her chest pain has improved. Still has some abdominal pain from recent surgery. Review of Systems: Negative except as above. Medications: List reviewed. Physical Examination: Vital Signs: Temperature 98.3, heart rate 60, blood pressure 114/70, respirations 18, O2 of 97% on r oom air. General: Awake, alert, oriented x3, in some mild distress, morbidly obese female, ill appearing. CV: S1, S2. No murmurs. Peripheral pulses present. Respiratory: Moving air well bilaterally. No wheezing. No stridor. No use of accessory muscles. Gastrointestinal: Abdomen is soft. Mild tenderness to palpation in the epigastric region. Bowel so unds are positive. Extremities: No clubbing, cyanosis. The patient has pedal edema. Neurologic: Nonfocal. Laboratory Data: Sodium 141, potassium 3.7, chloride 107, CO2 of 28, BUN 8, creatinine 0.9, glucose 93, calcium 9.2. Troponin 0.05 x 3. Triglycerides 154, cholesterol 182, LDL 114, HDL 37. WBC 6.5, H and H of 10.2 and 31.9, platelets 369. EKG shows normal sinus rhythm, rate of 68. Pharmacological stress test, no arrhythmia noted. Nondiagnostic EKG with Lexiscan stress test. Assessment And Plan: A 52-year-old female with: 1.Chest pain, rule out acute coronary syndrome. The patient's troponin level 0.05 x3. Stress test pending. Appreciate Dr. Armendariz' input. We will follow up on echocardiogram. 2.Pancreatic mass, status post recent resection. The patient does have some tenderness around the s urgery site, but tolerating diet. No nausea, vomiting. 3.Morbid obesity, BMI 42. 4.Microcytic hypochromic anemia, likely anemia of chronic disease. The patient will need outpatient colonoscopy to rule out any other source of bleeding such as colon cancer. 5.Hypertriglyceridemia. The patient will be started on statin. Plan: Continue chest pain guidelines. Follow up with stress test and echocardiogram. /ALEKS Voice ID: [id number] Report ID: [id number]
--- NOTE | 2018-02-09 18:06 | ECHO ---
HEIGHT: 5 ft 5 in WEIGHT: 255 lb 3 oz DATE OF STUDY: 02/09/[address]: 2-DIMENSIONAL: YES M.MODE: YES DOPPLER: YES COLOR FLOW: YES TDS: YES PORTABLE: NO DEFINITY: NO BUBBLE STUDY: NO DIAGNOSIS: CHEST PAIN CARDIAC HISTORY: CATHERIZATION: NO SURGERY: NO PROSTHETIC VALVE: NO PACEMAKER: NO MEASUREMENTS (cm) DIASTOLIC (NORMALS) SYSTOLIC (NORMALS) IVSd 0.8 (0.6-1.2) LA Diam 3.3 (1.9-4.0) LVEF 65% LVIDd 4.0 (3.5-5.7) LVIDs 2.6 (2.0-3.5) %FS 35% LVPWd 0.9 (0.6-1.2) Ao Diam 3.1 (2.0-3.7) 2 DIMENSIONAL ASSESSMENT: RIGHT ATRIUM: NORMAL LEFT ATRIUM: NORMAL RIGHT VENTRICLE: NORMAL LEFT VENTRICLE: NORMAL TRICUSPID VALVE: NORMAL MITRAL VALVE: NORMAL PULMONIC VALVE: NORMAL AORTIC VALVE: NORMAL PERICARDIAL EFFUSION: NONE AORTIC ROOT: NORMAL LEFT VENTRICULAR WALL MOTION: NORMAL. DOPPLER/COLOR FLOW: MILD TRICUSPID REGURGITATION. NORMAL RIGHT VENTRICULAR SYSTOLIC PRESSURE. COMMENTS: NORMAL 2D ECHOCARDIOGRAM WITH DOPPLER. MILD TRICUSPID REGURGITATION. TECHNOLOGIST: KACIE GARZA
[2018-02-09] MEDS ORDERED: ATORVASTATIN 40 MG TAB PO SCH (21:00)
[2018-02-10] MEDS: HYDROCODONE/APAP 10/325 TAB PO PRN ×2 (01:40→09:54)
[2018-02-10] MEDS: ASPIRIN EC 81 MG TAB PO SCH (09:51)
[2018-02-10] MEDS: ENOXAPARIN 100 MG/ML SYR SQ SCH (09:51)
--- NOTE | 2018-02-10 14:26 | P.DS ---
Admission Date: 02/08/18 Discharge Date: 02/10/18 Disposition: ROUTINE DISCHARGE Discharge Condition: FAIR Reason for Admission: chest pain - Problems (1) Chest pain Onset Date: 02/09/18 Current Visit: Yes Status: Acute Qualifiers: Chest pain type: precordial pain Qualified Code(s): R07.2 - Precordial pain (2) Pancreatic mass Onset Date: 02/09/18 Current Visit: Yes Status: Acute Brief History of Present Illness: Ms Markham is a 52 years old woman with history of obesity, who came to ED complaining of chest pain, starting today at 18:15. She describe the pain as heavy feeling in substernal area, associated with SOB, nausea and vomiting. She had diaphoresis as well when the pain start, intensity of the pain 8/10, radiated to her left arm. She has never had this kind of symptoms before. Lab work remarkable for Troponin I 0.05, EKG shows sinus rhythm at [address]-T abnormalties. Hospital Course: She underent echo, stress test which are normal; She has no more chest pain. She is discharged home stable. Vital Signs/Physical Exam: Temp Pulse Resp BP Pulse Ox 98.1 F 71 18 117/72 100 02/10/18 12:00 02/10/18 12:00 02/10/18 12:00 02/10/18 12:00 02/10/18 12:00 General: Alert, In no apparent distress HEENT: Atraumatic, PERRLA, EOMI Neck: Supple, JVD not distended Respiratory: Clear to auscultation bilaterally, Normal air movement Cardiovascular: Regular rate/rhythm, Normal S1 S2 Gastrointestinal: Normal bowel sounds, No tenderness Musculoskeletal: No tenderness Integumentary: No rashes Neurological: Normal speech, Normal tone, Normal affect Lymphatics: No axilla or inguinal lymphadenopathy Laboratory Data at Discharge: WBC 6.5 K/uL (4.3-10.9) 02/09/18 05:23 Hgb 10.2 g/dL (12.0-15.0) L 02/09/18 05:23 Hct 31.9 % (36.0-45.0) L 02/09/18 05:23 Plt Count 369 K/uL (152-406) 02/09/18 05:23 Sodium 141 mmol/L (136-145) 02/09/18 05:23 Potassium 3.7 mmol/L (3.5-5.1) 02/09/18 05:23 BUN 8 mg/dL (7-18) 02/09/18 05:23 Creatinine 0.90 mg/dL (0.55-1.3) 02/09/18 05:23 Glucose 93 mg/dL (74-106) 02/09/18 05:23 Total Bilirubin 0.3 mg/dL (0.2-1.0) 02/08/18 19:25 AST 38 U/L (15-37) H 02/08/18 19:25 ALT 40 U/L (12-78) 02/08/18 19:25 Alkaline Phosphatase 84 U/L (45-117) 02/08/18 19:25 Troponin I 0.05 ng/mL (0.0-0.045) H 02/09/18 17:00 Triglycerides 154 mg/dL (<150) H 02/09/18 05:23 Cholesterol 182 mg/dL (<200) 02/09/18 05:23 HDL Cholesterol 37 mg/dL (40-60) L 02/09/18 05:23 Cholesterol/HDL Ratio 4.92 02/09/18 05:23 Lipase 223 U/L (73-393) 02/08/18 19:25 Home Medications: Hydrocodone 10/APAP 325 [[place] 10/325*] 1 tab PO Q4HP PRN 02/09/18 Ibuprofen 400 mg PO Q4HP PRN 02/09/18 Atorvastatin Calcium [Lipitor] 40 mg PO BEDTIME #30 tab 02/10/18 New Medications: Atorvastatin Calcium [Lipitor] 40 mg PO BEDTIME #30 tab Activity: Ad te Time spent managing pt's care (in minutes): 15
== END 2018-02-10 14:30 | disposition home health service (06) ==
LOC: ER 19:19 → ERHOLD 22:17 → 4TH 02-09 00:15
PROVIDERS: ADMIT Internal Medicine; ATTEND Internal Medicine Hematology & Oncology
DX: R07.2 Precordial pain (principal); R74.8 Abnormal levels of other serum enzymes; E66.01 Morbid (severe) obesity due to excess calories; Z68.41 Body mass index [BMI] 40.0-44.9, adult; D50.9 Iron deficiency anemia, unspecified; E78.1 Pure hyperglyceridemia; Z85.07 Personal history of malignant neoplasm of pancreas; Z88.0 Allergy status to penicillin
CPT/HCPCS: 36415; 71260; 74177; 78452; 80048; 80061; 80076; 81001; 83690; 84484; 85025; 93005; 93017; 93306; 96374; 96375; 99285; A9500; G0378; J1650; J2785; J3010; Q9967